=== PATIENT | female | born 1970 | race Two or more races ===

== ENCOUNTER 2018-03-07 05:40 | Day surgery (SDC) | payer OTHER ==
[~2018-03-07 05:40] MED LIST: ASPIR 8181 MG PO; ATORVASTATIN CA40 MG PO; CARVEDILOL12.5 MG PO; COZAAR25 MG PO; HUMALOG KW100 UNIT/1; LANTUS; NEURIN SL; PEPCI; PLAVIX75 MG PO; SYNTHROID100 MCG PO
== END 2018-03-07 12:15 | disposition home or self-care (01) ==
LOC: CIR.AMB 05:40
DX: L72.0 Epidermal cyst (principal)